=== PATIENT | female | born 1990 | race Caucasian/White ===

== ENCOUNTER 2018-08-21 21:15 | Inpatient (IN) ==
[2018-08-21] MEDS ORDERED: Aluminum/Magnesium/Simethacone Susp 30 ML UDC PO PRN (22:48)
[2018-08-22] MEDS: Acetaminophen 325 MG Tablet PO PRN ×3 (02:01→15:07)
[2018-08-22] MEDS: LORazepam 1 MG Tablet PO PRN (08:51)
[2018-08-22 09:51] LABS: Calcium 8.7 mg/dL (8.5-10.1); Carbon Dioxide 26.1 meq/L (21.0-32.0); Potassium 3.6 meq/L (3.5-5.1)
[2018-08-22 09:55] LABS: Chol/HDL Ratio 3.47 Ratio; HDL Cholesterol 54.6 mg/dL (40.0-60.0)
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
[2018-08-22] MEDS: carBAMazepine 200 MG Tablet PO SCH ×2 (15:11→20:24)
[2018-08-22] MEDS: QUEtiapine 25 MG Tablet PO SCH (20:24)
[2018-08-23] MEDS: Acetaminophen 325 MG Tablet PO PRN ×4 (06:10→23:00)
[2018-08-23] MEDS: carBAMazepine 200 MG Tablet PO SCH ×2 (08:53→20:29)
--- NOTE | 2018-08-23 13:59 | P.PNPSY ---
Subjective Chief Complaint: mood swings Remarks: Patient seen for follow-up, chart reviewed, patient discussed with nursing staff ; we reviewed the patient's mood, thoughts, and behaviors from overnight and this morning. Nurse reports that the patient slept 6 hours overnight and is described as calm cooperative with no behavioral issues. The patient was seen during recreational therapy and seemed to be interacting appropriately with staff and peers. Patient describes her mood as "forlorn" and when asked to rate the intensity of her mood she quantifies it as "not overwhelming and ". As for anxiety she reports is well controlled with current medications. As for her goals for treatment the patient reports that she has short-term goals of ensuring that the new medications are tolerable and effective with controlling her night terrors and mood and her long-term goals of "mastering my coping skills to become more independent." We discussed outpatient dialectic behavioral therapy in order to achieve these goals and she was open and motivated to pursue further information. She denies homicidal or suicidal ideations. She reports no night terrors since admission. Mental Status Examination Appearance: Disheveled Consciousness: Alert Orientation: x4 Motor Activity: Normal gait Speech: Unremarkable Language: Adequate Fund of Knowledge: Adequate Attention and Concentration: Easily distracted Memory: Unremarkable Mood: Sad, Irritable Affect: Appropriate Thought Process & Associations: Intact Thought Content: Appropriate Hallucination Type: None Delusion Type: None Suicidal Ideation: No Suicidal Plan: No Suicidal Intention: No Homicidal Ideation: No Homicidal Plan: No Homicidal Intention: No Insight: Fair Judgment: Impulsive Assessment and Plan - Assessment (1) Borderline personality disorder Code(s): F60.3 - Borderline personality disorder Status: Acute (2) Cocaine use disorder Code(s): F14.10 - Cocaine abuse, uncomplicated Status: Acute (3) Alcohol use disorder, mild, abuse Code(s): F10.10 - Alcohol abuse, uncomplicated Status: Acute - Plan Plan: August 22, 2018: Based on the presentation, it is very likely that patient has borderline personality disorder. Patient gives consent to start Tegretol 200 mg p.o. twice daily and Seroquel 50 mg p.o. nightly. We will continue the CIWA scale. We will also give her Atarax for anxiety. She may sign voluntary. August 23, 2018: Good response to inpatient treatment, patient's affect and behavior are stable and she is reporting good tolerability and efficacy of current medications. She is hesitant about possible discharge as she fears a recurrence of night terrors and impulses to harm herself and would prefer continued inpatient treatment. Continue inpatient psychiatric treatment and stabilization to ensure tolerability and efficacy of new medications. Discharge planning: Patient will need outpatient psychiatric follow-up and would also benefit from a referral to outpatient therapy, specifically dialectic behavioral therapy. Anticipate discharge later this week. Justification for Continued Inpatient Stay: Patient remains an elevated risk for self-harm by self-injurious behaviors when she becomes overwhelmed by depression and anxiety and will require further inpatient stabilization and preparation of a safe discharge plan. Moving patient to a less restrictive environment at this time may result in decompensation.
[2018-08-23] MEDS: QUEtiapine 25 MG Tablet PO SCH (20:29)
[2018-08-23] MEDS: LORazepam 1 MG Tablet PO PRN (23:27)
[2018-08-24] MEDS: Acetaminophen 325 MG Tablet PO PRN ×2 (03:24→10:19)
[2018-08-24] MEDS: carBAMazepine 200 MG Tablet PO SCH ×2 (08:13→20:03)
--- NOTE | 2018-08-24 10:01 | P.TTN ---
- Patient Problems Problems: 1. Discharge planning 2. Medication compliance 3. Knowledge deficit 4. Lack of coping skills - Progress Toward Goals Provider Present: Other (Dr. Boykin, patient presents with borderline personality disorder, needs dialectical behavioral treatment to improve coping skills. Dr. Murillo started her on medication.) Psychiatric Counselors Present: Alan Nevarez Jr., [facility] (Counselor will meet with patient to discuss safe discharge plan.) Group Spec/RT/OT/HARTMAN Present: DEVAN Borrego (Patient attends select groups.) - Documentation Teaching Recipient: Patient
[2018-08-24] MEDS ORDERED: LORazepam 1 MG Tablet PO ONE (11:00)
[2018-08-24] MEDS: Lisinopril 20 MG Tablet PO SCH (11:37)
--- NOTE | 2018-08-24 12:16 | P.PNPSY ---
Subjective Chief Complaint: mood swings Remarks: Patient seen for follow-up, chart reviewed, patient discussed with nursing staff ; we reviewed the patient's mood, thoughts, and behaviors from overnight and this morning. Nursing reports that patient did not sleep overnight and she had episodes of screaming loudly in the hallway and demanding the nurses. The patient was described as hyperverbal, intrusive, attention seeking, demanding, and needing frequent redirection from her med seeking behavior. The patient was seen this morning while in recreational therapy after breakfast and she was interacting appropriately and seemed to be enjoying herself at the [facility]. She was calm and pleasant with provider but did demonstrate some manipulative behavior and attempts at splitting staff. She complained of staff being rude to her and not validating her needs. The patient complained of inadequate response to the Atarax and requested treatment with Ativan. We discussed risk benefits side effects alternative treatments for anxiety and chronic PTSD as she insists she suffers from and the patient expressed understanding but insisted that she be prescribed Ativan because she will pay whatever it takes to get a doctor to continue it when she is discharged. The patient expressed other grandiose beliefs about the power of her wealth and influence. She had signed a RTR this morning and reports it was because she felt threatened by the agitation and psychotic behavior of other patients on the unit and did not feel supported by the nurses. She denies any suicidal or homicidal ideations and she denies any hallucinations. We discussed risks benefits side effects alternative treatments and she chooses to stay at least 1 more night with a trial of increased dosing of the Seroquel for treatment of mood and thought disorder. Mental Status Examination Appearance: Disheveled Consciousness: Alert Orientation: x4 Motor Activity: Normal gait Speech: Unremarkable Language: Adequate Fund of Knowledge: Adequate Attention and Concentration: Easily distracted Memory: Unremarkable Mood: Anxious, Irritable Affect: Appropriate Thought Process & Associations: Intact, Logical, Goal directed Thought Content: Preoccupations (With receiving "sedative-hypnotics "), Other ( Grandiose entitlements) Hallucination Type: None Delusion Type: Other (Grandiose) Suicidal Ideation: No Suicidal Plan: No Suicidal Intention: No Homicidal Ideation: No Homicidal Plan: No Homicidal Intention: No Insight: Fair Judgment: Impulsive Assessment and Plan - Assessment (1) Borderline personality disorder Code(s): F60.3 - Borderline personality disorder Status: Acute (2) Cocaine use disorder Code(s): F14.10 - Cocaine abuse, uncomplicated Status: Acute (3) Alcohol use disorder, mild, abuse Code(s): F10.10 - Alcohol abuse, uncomplicated Status: Acute (4) Mood disorder Code(s): F39 - Unspecified mood [affective] disorder Status: Acute - Plan Plan: August 22, 2018: Based on the presentation, it is very likely that patient has borderline personality disorder. Patient gives consent to start Tegretol 200 mg p.o. twice daily and Seroquel 50 mg p.o. nightly. We will continue the CIWA scale. We will also give her Atarax for anxiety. She may sign voluntary. August 23, 2018: Good response to inpatient treatment, patient's affect and behavior are stable and she is reporting good tolerability and efficacy of current medications. She is hesitant about possible discharge as she fears a recurrence of night terrors and impulses to harm herself and would prefer continued inpatient treatment. Continue inpatient psychiatric treatment and stabilization to ensure tolerability and efficacy of new medications. Discharge planning: Patient will need outpatient psychiatric follow-up and would also benefit from a referral to outpatient therapy, specifically dialectic behavioral therapy. Anticipate discharge later this week. August 24, 2018: Unsatisfactory response to treatment; the patient did not sleep last night and she is expressing grandiose beliefs and demanding that she be treated with sedative-hypnotics despite the warnings of the long-term risks. Her interactions with peers and staff are consistent with a borderline personality as she is manipulative and verbally aggressive/threatening but her lack of sleep and grandiose thoughts are concerning for a more severe mood disorder. She agrees with continued inpatient treatment and stabilization with further increase in the Seroquel for treatment of mood. Continue inpatient psychiatric treatment and stabilization, voluntary status with anticipated discharge requested for tomorrow. Continue Tegretol 200 mg twice a day for mood and impulse control. Increase Seroquel to 100 mg at bedtime and 25 mg every morning for treatment of mood. Continue Ativan as needed per CIWA protocol as patient insists that she is having alcohol withdrawal symptoms; patient will be given Ativan 1 mg one-time dose this morning for acute agitation. Discharge planning: Patient will need outpatient psychiatric follow-up and would also benefit from a referral to outpatient therapy, specifically dialectic behavioral therapy. Anticipate discharge tomorrow. Justification for Continued Inpatient Stay: Patient remains an elevated risk for self-harm by self-injurious behaviors in response to agitation and will require further inpatient stabilization and preparation of a safe discharge plan. Moving patient to a less restrictive environment at this time may result in decompensation.
[2018-08-24] MEDS ORDERED: QUEtiapine 100 MG Tablet PO SCH (21:00)
[2018-08-25 05:55] VITALS: BP 138/61; PULSE 91; RESP 18; TEMP 97.6; O2SAT 97
[2018-08-25] MEDS: carBAMazepine 200 MG Tablet PO SCH (08:16)
[2018-08-25] MEDS: Lisinopril 20 MG Tablet PO SCH (08:16)
[2018-08-25] MEDS ORDERED: QUEtiapine 25 MG Tablet PO SCH (09:00)
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
== END 2018-08-25 10:00 | disposition home or self-care (01) | DRG 883 ==
LOC: H270 21:45
PROVIDERS: ADMIT Psychiatry & Neurology Psychiatry; ATTEND Psychiatry & Neurology Psychiatry